=== PATIENT | male | born 1945 | race Caucasian/White ===

== ENCOUNTER 2017-03-31 09:41 | Emergency (ER) | payer BC ==
[2017-03-31] MEDS ORDERED: Sodium Chloride 0.9% 1000 ML 1,000 ML ONE (09:53)
[2017-03-31 10:03] LABS: VBG BASE EXCESS 5.6 (-2.0-2.0); VBG HCO3- 29.8 meq/L (22-28); VBG HEMOGLOBIN 11.4; VBG O2 SATURATION 47.3 (95-100); VBG POTASSIUM 2.2 (3.5-5.1); VBG pH 7.47 (7.32-7.42)
[2017-03-31 10:15] LABS: Mean Cell Volume 87.8 fl (78-100); Mean Platelet Volume 12.5 fl (6-9.5); Platelet Count 148 K/mm3 (150-450); Red Blood Count 3.61 M/mm3 (4.1-5.6); Red Cell Distribution Width 16.2 % (11.5-14.0); White Blood Count 9.2 K/mm3 (4.0-10.5)
--- NOTE | 2017-03-31 10:17 | XRAY ---
Indication: Hypotension. Renal failure. Comparison: None Portable chest demonstrates minimal bibasilar infiltrates/atelectasis/effusion and a few calcified granulomas. Remaining lungs clear. Heart is not enlarged for AP portable technique. Right-sided large-bore double-lumen dialysis catheter without pneumothorax. Bony thorax intact with mild osteopenia and degenerative changes. Impression: Bibasilar infiltrates/atelectasis/effusion without cardiomegaly.
[2017-03-31 10:22] LABS: Mean Corpuscular Hemoglobin 30.1 pg (26-32)
--- NOTE | 2017-03-31 10:42 | ERPHSYRPT ---
- History of Present Illness Time Seen by Provider: 03/31/17 09:43 Source: patient, family (daughter), EMS Patient Subjective Stated Complaint: ems states pt was picked up at home to go to dialysis. ems reports pt blood pressure low and pt brought to ER for evaluation. Triage Nursing Assessment: pt pale, warm, dry. pt mouth dry. oriented to person and place. Physician History: CC: low BP Hx: 71 y/o patient of Dr Jack. He has hx of end stage renal disease, amyloidosis , orthostatic hypotension. He has [facility]. He has been on dialysis. He went Thursday but was unable to have a run due to abnl vitals. Today the ambulance picked him up for routine dialysis, he had low BP of 60 so he was brought to ER. Daughter desires SCO. She states he is not eating or drinking. He lives at home with close family care but daughter does not want him to in her home. Has not been taking medications for 2 days. Allergic to shellfish. No fall or injury. No known bleeding. Severity: moderate Allergies/Adverse Reactions: shellfish derived Allergy (Verified 03/31/17 10:06) Home Medications: Aspirin 81 mg PO DAILY 03/31/17 [History] Atorvastatin Calcium [Lipitor] 80 mg PO HS 03/31/17 [History] Clopidogrel Bisulfate 75 mg [PLAVIX 75 MG Tablet] 75 mg PO DAILY 03/31/17 [History] Fludrocortisone Acetate 0.1 mg PO BID 03/31/17 [History] Midodrine HCl 5 mg [Proamatine 5 mg] 10 mg PO TID 03/31/17 [History] Potassium Chloride [Klor-Con 10] 10 meq PO DAILY 03/31/17 [History] Hx Tetanus, Diphtheria Vaccination/Date Given: No (unknown) Hx Influenza Vaccination/Date Given: No (unknown) Hx Pneumococcal Vaccination/Date Given: No (unknown) Immunizations Up to Date: No ([place]) - Review of Systems Constitutional: Fatigue, Malaise, Weakness, No Fever Eyes: No Symptoms Ears, Nose, & Throat: No Symptoms Respiratory: No Cough Cardiac: No Chest Pain Abdominal/Gastrointestinal: No Abdominal Pain, No Vomiting, No Diarrhea Musculoskeletal: No Back Pain Skin: No Rash Neurological: No Focal Weakness, No Headache All Other Systems: Unable due to condition (confused) - Past Medical History Pertinent Past Medical History: Yes History: Dialysis Other Medical History: kidney failure. Amyoidosis. Orthostatic hypotension - Past Surgical History Past Surgical History: Yes Other Surgical History: dialysis port - Social History Smoking Status: Never smoker Exposure to second hand smoke: No Drug Use: none Patient Lives Alone: No - Nursing Vital Signs Nursing Vital Signs: Initial Vital Signs Temperature 99.3 F Temperature Source Rectal Pulse Rate 103 Respiratory Rate 18 Blood Pressure [] 85/65 Pain Intensity 0 - Physical Exam General Appearance: alert Eye Exam: PERRL/EOMI (small) Ears, Nose, Throat Exam: dry mucous membranes Neck Exam: supple Respiratory Exam: normal breath sounds Cardiovascular Exam: murmur, irregular Gastrointestinal/Abdomen Exam: soft, No tenderness, No distention Male Genitalia Exam: normal genitalia Extremity Exam: pedal edema (1+) Neurologic Exam: alert, other (confused to time and place (1976, [facility]) ), No motor deficits Skin Exam: warm, dry, No rash - Course Nursing assessment & vital signs reviewed: Yes EKG Interpreted by Me: RATE (95), Sinus Rhythm, NORMAL AXIS, NORMAL INTERVALS ( QTc 355), Non-specific ST Changes - Radiology Exams cxr X-ray Interpretation: Teleradiologist Report (bibasilar infiltrates,atelectasis, effusion without CM) Ordered Tests: Active Orders 24 hr Category Date Time Status Clean Catch Urine Specimen STAT Care 03/31/17 09:44 Active EKG-ER Only STAT Care 03/31/17 09:44 Active IV Insertion STAT Care 03/31/17 09:44 Active Oxygen-ED Only NASAL CANNULA 2 lpm Care 03/31/17 10:50 Active Rectal Temperature STAT Care 03/31/17 09:45 Active CHEST 1 VIEW (PORTABLE) Stat Exams 03/31/17 09:44 Completed BLOOD CULTURE Stat Lab 03/31/17 10:02 Received CBC W DIFF Stat Lab 03/31/17 10:02 Completed CMP Stat Lab 03/31/17 10:02 Completed CULTURE,URINE Stat Lab 03/31/17 10:30 Received Lactic Acid Stat Lab 03/31/17 09:55 Completed MAGNESIUM Stat Lab 03/31/17 10:02 Completed Manual Differential NC Stat Lab 03/31/17 10:02 Completed TROPONIN Stat Lab 03/31/17 10:02 Completed UA W/ MICROSCOPIC Stat Lab 03/31/17 10:30 Completed VENOUS BLOOD GAS Stat Lab 03/31/17 09:55 Completed Medication Summary Generic Name Dose Route Start Last Admin Trade Name Gordon PRN Reason Stop Dose Admin Potassium Chloride 100 mls @ 50 mls/hr 03/31/17 12:15 Potassium Chloride 20 Meq In Water 100ml IV 03/31/17 16:14 Q2H GARY Discontinued Medications Generic Name Dose Route Start Last Admin Trade Name Gordon PRN Reason Stop Dose Admin Sodium Chloride 500 mls @ 999 mls/hr 03/31/17 09:44 03/31/17 09:54 Sodium Chloride 0.9% 1000 Ml IV 03/31/17 10:14 999 mls/hr .Q31M STA Administration Sodium Chloride Confirm 03/31/17 09:53 Sodium Chloride 0.9% 1000 Ml Administered 03/31/17 09:54 Dose 1,000 mls @ ud .ROUTE .[employer]prove[employer]! 360-MED ONE Lab/Rad Data: Laboratory Result Diagrams 03/31/17 10:02 03/31/17 10:02 Laboratory Results 03/31/17 03/31/17 03/31/17 Range/Units 10:30 10:02 10:02 WBC 9.2 (4.0-10.5) K/mm3 RBC 3.61 L (4.1-5.6) M/mm3 Hgb 10.9 L (12.5-18.0) gm/dl Hct 31.7 L (42-50) % MCV 87.8 (78-100) fl MCH 30.1 (26-32) pg MCHC 34.4 (32-36) g/dl RDW 16.2 H (11.5-14.0) % Plt Count 148 L (150-450) K/mm3 MPV 12.5 H (6-9.5) fl Segmented Neutrophils 80 H (36.-66.) % Band Neutrophils 1 (0.0-2.0) % Lymphocytes (Manual) 18 L (24-44) % Monocytes (Manual) 1 (0.0-12.0) % Differential Comment ABNORMAL Platelet Estimate NORMAL (NORMAL) Anisocytosis 1+ VBG pH (7.32-7.42) VBG pCO2 at Pat Temp (42-55) mm/Hg VBG pO2 at Pat Temp (25-40) mm/Hg VBG HCO3 (22-28) meq/L VBG O2 Sat (Kassie) (95-100) VBG Base Excess (-2.0-2.0) VBG Hemoglobin VBG Carboxyhemoglobin (0.0-6.9) % T HGB POC Potassium (3.5-5.1) Sodium 140 (136-145) mEq/L Potassium 2.3 L* (3.5-5.1) mEq/L Chloride 105 (98-107) mEq/L Carbon Dioxide 24.4 (21-32) mEq/L Anion Gap 13.0 (5-15) MEQ/L BUN 27 H (9-20) mg/dL Creatinine 6.91 H (0.55-1.30) mg/dl Estimated GFR 8 ML/MIN Glucose 80 (70-110) MG/DL Lactic Acid (0.4-2.0) Calcium 7.4 L (8.5-10.1) mg/dL Magnesium 1.8 (1.8-2.4) mg/dL Total Bilirubin 0.2 (0.2-1.0) mg/dL AST 75 H (15-37) U/L ALT 37 (12-78) U/L Alkaline Phosphatase 214 H (46-116) U/L Troponin I 1.233 H* (0.000-0.056) ng/ml Serum Total Protein 3.9 L (6.4-8.2) gm/dL Albumin < 0.6 L (3.4-5.0) g/dL Ur Collection Type VOID Urine Color YELLOW (YELLOW) Urine Appearance CLEAR (CLEAR) Urine pH 7.0 (5-6) Ur Specific [place] 1.020 (1.005-1.025) Urine Protein >=300 (Negative) Urine Glucose (UA) 500 (NEGATIVE) mg/dL Urine Ketones TRACE (NEGATIVE) Urine Nitrite NEGATIVE (NEGATIVE) Urine Bilirubin NEGATIVE (NEGATIVE) Urine Urobilinogen 0.2 (0-1) mg/dL Urine WBC (Auto) NEGATIVE (NEGATIVE) Urine RBC (Auto) LARGE (0-5) Gregory/ul Urine Microscopic RBC 2-5 (0-2) /HPF Urine Microscopic WBC 2-5 (0-5) /HPF Ur Epithelial Cells FEW (FEW) /HPF Urine Bacteria FEW (NEGATIVE) /HPF Hyaline Casts 5-10 (0-2) /LPF Specimen Received 03/31/17 1030 03/31/17 03/31/17 Range/Units 09:55 09:55 WBC (4.0-10.5) K/mm3 RBC (4.1-5.6) M/mm3 Hgb (12.5-18.0) gm/dl Hct (42-50) % MCV (78-100) fl MCH (26-32) pg MCHC (32-36) g/dl RDW (11.5-14.0) % Plt Count (150-450) K/mm3 MPV (6-9.5) fl Segmented Neutrophils (36.-66.) % Band Neutrophils (0.0-2.0) % Lymphocytes (Manual) (24-44) % Monocytes (Manual) (0.0-12.0) % Differential Comment Platelet Estimate (NORMAL) Anisocytosis VBG pH 7.47 H (7.32-7.42) VBG pCO2 at Pat Temp 41 L (42-55) mm/Hg VBG pO2 at Pat Temp 22 L (25-40) mm/Hg VBG HCO3 29.8 H* (22-28) meq/L VBG O2 Sat (Kassie) 47.3 L (95-100) VBG Base Excess 5.6 H (-2.0-2.0) VBG Hemoglobin 11.4 VBG Carboxyhemoglobin 3.0 (0.0-6.9) % T HGB POC Potassium 2.2 L* (3.5-5.1) Sodium (136-145) mEq/L Potassium (3.5-5.1) mEq/L Chloride (98-107) mEq/L Carbon Dioxide (21-32) mEq/L Anion Gap (5-15) MEQ/L BUN (9-20) mg/dL Creatinine (0.55-1.30) mg/dl Estimated GFR ML/MIN Glucose (70-110) MG/DL Lactic Acid 1.7 (0.4-2.0) Calcium (8.5-10.1) mg/dL Magnesium (1.8-2.4) mg/dL Total Bilirubin (0.2-1.0) mg/dL AST (15-37) U/L ALT (12-78) U/L Alkaline Phosphatase (46-116) U/L Troponin I (0.000-0.056) ng/ml Serum Total Protein (6.4-8.2) gm/dL Albumin (3.4-5.0) g/dL Ur Collection Type Urine Color (YELLOW) Urine Appearance (CLEAR) Urine pH (5-6) Ur Specific [place] (1.005-1.025) Urine Protein (Negative) Urine Glucose (UA) (NEGATIVE) mg/dL Urine Ketones (NEGATIVE) Urine Nitrite (NEGATIVE) Urine Bilirubin (NEGATIVE) Urine Urobilinogen (0-1) mg/dL Urine WBC (Auto) (NEGATIVE) Urine RBC (Auto) (0-5) Gregory/ul Urine Microscopic RBC (0-2) /HPF Urine Microscopic WBC (0-5) /HPF Ur Epithelial Cells (FEW) /HPF Urine Bacteria (NEGATIVE) /HPF Hyaline Casts (0-2) /LPF Specimen Received - Progress Progress Note: 03/31/17 11:30 Pt on asa and plavix at home. He has refused his medications. 03/31/17 12:05 K low. Daughter would like dialysis if possible. She understands end stage. Called Dr Jack who advised 40 K rider and he will arrange transfer to [place]. Pt will likely need palliative care consult. Troponin elevation felt to be from end stage renal disease and not ACS. BP some better with IVF bolus. Counseled pt/family regarding: lab results, diagnosis, need for follow-up, rad results - Departure Time of Disposition: 12:06 Departure Disposition: Transfer ([place]) Clinical Impression: Hypokalemia, End stage renal disease, Hypotension Condition: Fair Critical Care Time: Yes Critical Care Time(excluding separately billable procedures): 30-74 minutes
[2017-03-31 10:55] LABS: Collection Type VOID
[2017-03-31 10:56] LABS: COMPLETE URINE MICROSCOPIC? YES
[2017-03-31 11:04] LABS: Bacteria FEW /HPF (NEGATIVE); Epithelial Cells FEW /HPF (FEW)
[2017-03-31 11:11] LABS: ALKALINE PHOSPHATASE 214 U/L (46-116); BILIRUBIN,TOTAL 0.2 mg/dL (0.2-1.0); BLOOD UREA NITROGEN 27 mg/dL (9-20); CHLORIDE 105 mEq/L (98-107); Carbon Dioxide 24.4 mEq/L (21-32); Glucose 80 MG/DL (70-110); MAGNESIUM 1.8 mg/dL (1.8-2.4); SGOT/AST 75 U/L (15-37); SGPT/ALT 37 U/L (12-78); SODIUM 140 mEq/L (136-145); Total Protein 3.9 gm/dL (6.4-8.2)
[2017-03-31 11:13] LABS: Potassium 2.3 mEq/L (3.5-5.1); TROPONIN 1.233 ng/ml (0.000-0.056)
[2017-03-31 11:18] LABS: ALBUMIN < 0.6 g/dL (3.4-5.0)
[2017-03-31 11:59] LABS: BAND 1 % (0.0-2.0); Total Cells Counted 100
[2017-03-31 12:00] LABS: Platelet Estimate NORMAL (NORMAL)
[2017-03-31 12:01] LABS: ANISOCYTOSIS 1+
[2017-03-31] MEDS ORDERED: POTASSIUM CHLORIDE 20 mEq IN WATER 100ML 100 ML IV ONE (12:08)
[2017-03-31] MEDS ORDERED: POTASSIUM CHLORIDE 20 mEq IN WATER 100ML 100 ML IV SCH (12:15)
[2017-03-31 13:25] VITALS: O2SAT 100
[2017-03-31] MEDS ORDERED: Sodium Chloride 0.9% 1000 ML 1,000 ML IV STA (13:25)
[2017-03-31 14:32] VITALS: BP 78/43; PULSE 91
== END 2017-03-31 14:20 | disposition short-term general hospital (02) ==
LOC: ED 09:41
DX: E87.6 Hypokalemia (principal); N18.6 End stage renal disease; I95.9 Hypotension, unspecified; R41.0 Disorientation, unspecified
CPT/HCPCS: 36000; 36415; 71010; 80053; 81000; 82805; 83605; 83735; 84484; 85025; 87040; 87086; 93005; 96360; 96361; 99285; J3480